=== PATIENT | male | born 1950 | race Caucasian/White ===

== ENCOUNTER 2018-08-17 08:09 | Emergency (ER) | payer MEDICARE, OTHER ==
[~2018-08-17] VITALS: Ht 180.3 cm; Wt 65.8 kg
[~2018-08-17 08:09] MED LIST: ALLO300 PO; ATOR80 PO; Aspir 8181 MG PO; CETI5 PO; FINA5 PO; Hydrocodone-Ap1 EA23 PO; KRILL OIL500 MG PO; LISI5 PO; Nitrofurantoin100 MG PO; Senna8.6 MG PO; [UNRECOGNIZED DRUG - OTHER] PO
[2018-08-17] MEDS ORDERED: Robaxin-750750 MG PO (09:06)
[2018-08-17] MEDS ORDERED: Percocet 5-3251 EACH PO (09:06)
== END 2018-08-17 10:10 | disposition home or self-care (01) ==
LOC: ER 08:09
DX: S29.012A Strain of muscle and tendon of back wall of thorax, initial encounter (principal); Z88.0 Allergy status to penicillin; Z88.1 Allergy status to other antibiotic agents; Z79.899 Other long term (current) drug therapy; Z79.82 Long term (current) use of aspirin; Z87.891 Personal history of nicotine dependence; X50.0XXA Overexertion from strenuous movement or load, initial encounter
CPT/HCPCS: 96372; 99283-25; J1885

== ENCOUNTER 2021-08-11 08:27 | Day surgery (SDC) | payer MEDICARE ==
[~2021-08-11] VITALS: Ht 177.8 cm; Wt 97.0 kg
[~2021-08-11 08:27] MED LIST changes: +AMLO5 PO; +ELIQUIS5 M2 PO; +Percocet 5-3251 EACH PO; +Robaxin-750750 MG PO
--- NOTE | 2021-08-11 14:26 | NUR ---
PT UP AND DRESSED PER SELF. R RADIAL SITE STABLE. CLOTH DOT PLACED AFTER AREA CLEANSED AND ARM BOARD IN PLACE. INSTRUCTED TO WEAR FOR 2 DAYS. SALINE LOCK REMOVED WITH CATHETER INTACT. DISCHARGE INSTRUCTIONS REVIEWED WITH PT AND , BOTH VERBALIZE UNDERSTANDING OF INSTRUCTIONS. PT TO PRIVATE VEHICLE PER W/C.
== END 2021-08-11 14:20 | disposition home or self-care (01) ==
LOC: MHTC 08:27
DX: I27.20 Pulmonary hypertension, unspecified (principal); I26.99 Other pulmonary embolism without acute cor pulmonale; I82.402 Acute embolism and thrombosis of unspecified deep veins of left lower extremity; I45.10 Unspecified right bundle-branch block; I12.9 Hypertensive chronic kidney disease with stage 1 through stage 4 chronic kidney disease, or unspecified chronic kidney disease; N18.9 Chronic kidney disease, unspecified; E78.5 Hyperlipidemia, unspecified; Z88.1 Allergy status to other antibiotic agents; Z88.0 Allergy status to penicillin
CPT/HCPCS: 76937; 93456; 99152; 99153; C1769; C1887; C1894; J1644; J2250; J3010; J7030; J7040; Q9967